=== PATIENT | male | born 1955 | race African-American/Black ===

== ENCOUNTER 2021-10-30 16:03 | Outpatient (CLI) | payer OTHER | END 2021-10-30 16:04 | disposition home or self-care (01) | LOC: CSHCT 16:03 | PROVIDERS: ATTEND Internal Medicine | DX: Z12.2 Encounter for screening for malignant neoplasm of respiratory organs (principal); F17.210 Nicotine dependence, cigarettes, uncomplicated | CPT/HCPCS: 71271 ==

== ENCOUNTER 2021-12-14 18:08 | Emergency (ER) | payer OTHER ==
[2021-12-14] MEDS ORDERED: Bacitracin 1 PK ONE (19:53)
[2021-12-14] MEDS ORDERED: Lidocaine 1% (PF) 30 ML VIAL ONE (19:53)
== END 2021-12-14 20:24 | disposition home or self-care (01) ==
LOC: CSHERS 18:08
DX: S61.012A Laceration without foreign body of left thumb without damage to nail, initial encounter (principal); I25.2 Old myocardial infarction; E11.9 Type 2 diabetes mellitus without complications; E78.5 Hyperlipidemia, unspecified; I10 Essential (primary) hypertension; F17.210 Nicotine dependence, cigarettes, uncomplicated; X58.XXXA Exposure to other specified factors, initial encounter
CPT/HCPCS: 12001; J2001

== ENCOUNTER 2021-12-21 09:44 | Emergency (ER) | payer OTHER | END 2021-12-21 10:06 | disposition home or self-care (01) | LOC: CSHERS 09:44 | DX: S61.011D Laceration without foreign body of right thumb without damage to nail, subsequent encounter (principal) | CPT/HCPCS: 99282 ==

== ENCOUNTER 2021-12-26 15:46 | Emergency (ER) | payer OTHER | END 2021-12-26 16:29 | disposition home or self-care (01) | LOC: CSHERS 15:46 | DX: S61.012D Laceration without foreign body of left thumb without damage to nail, subsequent encounter (principal); I25.10 Atherosclerotic heart disease of native coronary artery without angina pectoris; I25.2 Old myocardial infarction; E78.5 Hyperlipidemia, unspecified; E78.00 Pure hypercholesterolemia, unspecified; I10 Essential (primary) hypertension; E11.40 Type 2 diabetes mellitus with diabetic neuropathy, unspecified; F17.210 Nicotine dependence, cigarettes, uncomplicated ==

== ENCOUNTER 2022-01-07 08:21 | Emergency (ER) | payer OTHER ==
[2022-01-07 10:13] LABS: Hemoglobin 13.4 g/dL (13.5-17.5); Mean Corpuscular HGB CONC 35.4 g/dL (32.0-36.0); Mean Corpuscular Hemoglobin 26.9 pg (27.0-33.0); Mean Platelet Volume 11.6 fl (7.4-10.4); Platelet Count 221 10x3/uL (150-450); RBC Distribution Width 14.8 % (11.5-14.5); Red Blood Cell (RBC) Count 4.99 10x6/uL (4.32-5.72); White Blood Cell (WBC) Count 5.5 10x3/uL (3.5-10.5)
[2022-01-07 10:14] LABS: MDiff Complete? YES
[2022-01-07] MEDS ORDERED: Acetaminophen 500 MG TAB ONE (10:22)
[2022-01-07 10:40] LABS: Bilirubin Neg (Negative); Blood, Urine Negative (Negative); Clarity Clear (Clear); Glucose, Urine (Dipstick) 100 mg/dL (Negative); Ketone, Urine Negative (Negative); Leukocyte Negative (Negative); Nitrite Negative (Negative); Protein, Urine (Dipstick) 30 mg/dl (Neg-Trace); Specific Gravity, Urine 1.025 (1.002-1.036)
[2022-01-07 10:41] LABS: ALT (SGPT) 18 U/L (8-55); AST (SGOT) 17 U/L (5-34); Alkaline Phosphatase 60 U/L (40-110); Anion Gap 15 mmol/L (10-20); BUN (Urea Nitrogen) 15 mg/dL (8.4-25.7); Bilirubin, Total 0.7 mg/dL (0.2-1.2); Calc. Creatinine Clearance 0 mL/min (70-130); Calcium 9.1 mg/dL (7.8-10.44); Carbon Dioxide 23 mmol/L (23-31); Chloride 103 mmol/L (98-107); Estimated GFR 92; Globulin 2.7 g/dL (2.4-3.5); Glucose 212 mg/dL (80-115); Potassium 4.4 mmol/L (3.5-5.1); Protein, Total 6.7 g/dL (5.8-8.1); Sodium 137 mmol/L (136-145)
[2022-01-07 10:49] LABS: Band 2 % (5-11); Eosinophils 1 % (0-10); Lymphocytes 39 % (21-51); Monocytes 11 % (0-10); Neutrophil 44 % (42-75); Reactive Lymphocytes 2 % (0-10)
[2022-01-07 10:50] LABS: Platelet Morphology Comment Appears Adequate
[2022-01-07 10:53] LABS: Target Cells SLIGHT = 2-5 cells (100X) (0-1/hpf)
[2022-01-07 10:59] LABS: Bacteria/HPF 1+ HPF (None Seen); RBC/HPF 0-3 HPF (0-3); Squamous Epithelial 0-3 HPF (0-3); WBC/HPF 0-3 HPF (0-3)
[2022-01-07 11:00] LABS: Mucous/LPF 1+ LPF (<2+)
== END 2022-01-07 12:47 | disposition home or self-care (01) ==
LOC: CSHERS 08:21
DX: R10.9 Unspecified abdominal pain (principal); R21 Rash and other nonspecific skin eruption; I10 Essential (primary) hypertension; E11.40 Type 2 diabetes mellitus with diabetic neuropathy, unspecified; I25.10 Atherosclerotic heart disease of native coronary artery without angina pectoris; I25.2 Old myocardial infarction; E78.5 Hyperlipidemia, unspecified; E78.00 Pure hypercholesterolemia, unspecified; M19.90 Unspecified osteoarthritis, unspecified site; F17.210 Nicotine dependence, cigarettes, uncomplicated; Z95.5 Presence of coronary angioplasty implant and graft; Z79.4 Long term (current) use of insulin; Z79.82 Long term (current) use of aspirin; Z79.899 Other long term (current) drug therapy
CPT/HCPCS: 74176; 80053; 81003; 81015; 85025

== ENCOUNTER 2022-02-21 13:22 | Emergency (ER) | payer OTHER ==
[2022-02-21] MEDS ORDERED: Acetaminophen 325 MG TAB ONE (15:10)
[2022-02-21] MEDS ORDERED: Lidocaine 1% (PF) 30 ML VIAL ONE (15:10)
[2022-02-21 15:48] LABS: #Eosinphils 0.1 10x3/uL (0.0-0.5); #Monocytes 0.6 10x3/uL (0.0-1.1); #Neutrophils 3.4 10x3/uL (1.5-8.4); %Basophils 0.7 % (0.0-2.0); %Eosinophils 2.3 % (0.0-6.0); %Lymphocytes 30.4 % (18.0-47.0); %Neutrophils 56.3 % (40.0-75.0); Hemoglobin 12.2 g/dL (13.5-17.5); Mean Corpuscular HGB CONC 34.7 g/dL (32.0-36.0); Mean Corpuscular Hemoglobin 26.8 pg (27.0-33.0); Mean Corpuscular Volume 77.2 fl (81.2-95.1); Mean Platelet Volume 10.8 fl (7.4-10.4); Platelet Count 228 10x3/uL (150-450); RBC Distribution Width 14.6 % (11.5-14.5); Red Blood Cell (RBC) Count 4.56 10x6/uL (4.32-5.72); White Blood Cell (WBC) Count 6.1 10x3/uL (3.5-10.5)
[2022-02-21 16:02] LABS: ALT (SGPT) 16 U/L (8-55); AST (SGOT) 12 U/L (5-34); Alkaline Phosphatase 51 U/L (40-110); Anion Gap 13 mmol/L (10-20); BUN (Urea Nitrogen) 17 mg/dL (8.4-25.7); Bilirubin, Total 0.6 mg/dL (0.2-1.2); CK (CPK) 290 U/L (30-200); Calc. Creatinine Clearance 0 mL/min (70-130); Calcium 9.1 mg/dL (7.8-10.44); Carbon Dioxide 23 mmol/L (23-31); Chloride 106 mmol/L (98-107); Estimated GFR 80; Globulin 2.7 g/dL (2.4-3.5); Glucose 155 mg/dL (80-115); Lipase 11 U/L (8-78); Magnesium 1.7 mg/dL (1.6-2.6); Potassium 4.4 mmol/L (3.5-5.1); Protein, Total 6.7 g/dL (5.8-8.1); Sodium 138 mmol/L (136-145)
== END 2022-02-21 20:20 | disposition home or self-care (01) ==
LOC: CSHERS 13:22
DX: L02.214 Cutaneous abscess of groin (principal); R07.89 Other chest pain; E11.40 Type 2 diabetes mellitus with diabetic neuropathy, unspecified; I10 Essential (primary) hypertension; E78.00 Pure hypercholesterolemia, unspecified; F17.210 Nicotine dependence, cigarettes, uncomplicated
CPT/HCPCS: 10060; 36415; 71045; 80053; 82550; 83690; 83735; 83880; 84484; 85025; 93005; J2001

== ENCOUNTER 2022-05-12 11:09 | Outpatient (CLI) | payer OTHER | END 2022-05-12 11:10 | disposition home or self-care (01) | LOC: CSHRAD 11:09 | PROVIDERS: ATTEND Specialist | DX: M54.16 Radiculopathy, lumbar region (principal); Z98.890 Other specified postprocedural states; M47.816 Spondylosis without myelopathy or radiculopathy, lumbar region | CPT/HCPCS: 72120 ==

== ENCOUNTER 2022-05-25 14:45 | Outpatient (CLI) | payer OTHER | END 2022-05-25 14:46 | disposition home or self-care (01) | LOC: CSHCT 14:45 | PROVIDERS: ATTEND Specialist | DX: M54.16 Radiculopathy, lumbar region (principal); Z98.890 Other specified postprocedural states; M47.816 Spondylosis without myelopathy or radiculopathy, lumbar region | CPT/HCPCS: 72131 ==

== ENCOUNTER 2022-08-16 09:17 | Outpatient (CLI) | payer OTHER | END 2022-08-16 09:18 | disposition home or self-care (01) | LOC: CSHULT 09:17 | PROVIDERS: ATTEND Internal Medicine | DX: S80.10XA Contusion of unspecified lower leg, initial encounter (principal) | CPT/HCPCS: 93970 ==

== ENCOUNTER 2022-08-17 08:23 | Day surgery (SDC) | payer OTHER ==
[2022-08-17] MEDS ORDERED: Lidocaine 1% PF 5 ML VIAL ONE ×2 (09:02→09:03)
[2022-08-17] MEDS ORDERED: Sodium Bicarbonate 2.5 MEQ/5 ML VIAL ONE (09:03)
[2022-08-17] MEDS ORDERED: Iopamidol-M 200 41% 10 ML VIAL FS ONE (09:07)
[2022-08-17 12:49] VITALS: BP 154/88; TEMP 98.5
== END 2022-08-17 11:55 | disposition home or self-care (01) ==
LOC: CSHRAD 08:23
PROVIDERS: ATTEND Neurological Surgery
PROC: B02BYZZ Computerized Tomography (CT Scan) of Spinal Cord using Other Contrast (ICD-10-PCS; principal; 2022-08-17)
DX: M48.061 Spinal stenosis, lumbar region without neurogenic claudication (principal); M54.16 Radiculopathy, lumbar region; E11.42 Type 2 diabetes mellitus with diabetic polyneuropathy; I12.9 Hypertensive chronic kidney disease with stage 1 through stage 4 chronic kidney disease, or unspecified chronic kidney disease; E11.22 Type 2 diabetes mellitus with diabetic chronic kidney disease; N18.9 Chronic kidney disease, unspecified; I25.2 Old myocardial infarction; Z98.1 Arthrodesis status; Z88.5 Allergy status to narcotic agent; Z88.2 Allergy status to sulfonamides; Z88.6 Allergy status to analgesic agent; Z88.8 Allergy status to other drugs, medicaments and biological substances; Z79.84 Long term (current) use of oral hypoglycemic drugs
CPT/HCPCS: 62304; 72132; Q9966

== ENCOUNTER 2023-05-02 11:02 | Outpatient (CLI) | payer OTHER | END 2023-05-02 11:03 | disposition home or self-care (01) | LOC: CSHRAD 11:02 | PROVIDERS: ATTEND Neurological Surgery | DX: M47.26 Other spondylosis with radiculopathy, lumbar region (principal); M43.17 Spondylolisthesis, lumbosacral region; Z98.890 Other specified postprocedural states | CPT/HCPCS: 72100 ==

== ENCOUNTER 2023-08-01 12:07 | Outpatient (CLI) | payer MEDICARE, OTHER | END 2023-08-01 12:08 | disposition home or self-care (01) | LOC: CSHRAD 12:07 | PROVIDERS: ATTEND Neurological Surgery | DX: M43.16 Spondylolisthesis, lumbar region (principal); M47.816 Spondylosis without myelopathy or radiculopathy, lumbar region; Z98.890 Other specified postprocedural states | CPT/HCPCS: 72110 ==

== ENCOUNTER 2024-05-17 12:29 | Emergency (ER) | payer MEDICARE, MEDICAID | END 2024-05-17 15:31 | disposition home or self-care (01) | LOC: CSHERS 12:29 | DX: M67.432 Ganglion, left wrist (principal); E11.9 Type 2 diabetes mellitus without complications; I10 Essential (primary) hypertension; F17.210 Nicotine dependence, cigarettes, uncomplicated ==

== ENCOUNTER 2024-06-09 15:33 | Emergency (ER) | payer MEDICARE, MEDICAID ==
[2024-06-09 16:46] LABS: #Basophils 0.03 10x3/uL (0.0-0.2); #Eosinophils 0.19 10x3/uL (0.0-0.5); #Monocytes 0.69 10x3/uL (0.0-1.1); #Neutrophils 2.78 10x3/uL (1.5-8.4); %Basophils 0.5 % (0.0-2.0); %Eosinophils 3.4 % (0.0-6.0); %Lymphocytes 33.7 % (18.0-47.0); %Monocytes 12.3 % (0.0-10.0); %Neutrophils 49.6 % (40.0-75.0); Hematocrit 34.3 % (38.8-50.0); Hemoglobin 12.2 g/dL (13.5-17.5); Mean Corpuscular HGB CONC 35.6 g/dL (32.0-36.0); Mean Corpuscular Hemoglobin 27.1 pg (27.0-33.0); Mean Corpuscular Volume 76.2 fL (81.2-95.1); Mean Platelet Volume 10.2 fL (7.4-10.4); Platelet Count 266 10x3/uL (150-450); RBC Distribution Width 14.4 % (11.5-14.5); White Blood Cell (WBC) Count 5.6 10x3/uL (3.5-10.5)
[2024-06-09 17:04] LABS: ALT (SGPT) 23 U/L (8-55); AST (SGOT) 23 U/L (5-34); Albumin 3.7 g/dL (3.4-4.8); Alkaline Phosphatase 74 U/L (40-110); Anion Gap 15 mmol/L (10-20); BUN (Urea Nitrogen) 12 mg/dL (8.4-25.7); Bilirubin, Total 0.6 mg/dL (0.2-1.2); Calc. Creatinine Clearance 0 mL/min (70-130); Calcium 9.2 mg/dL (7.8-10.44); Carbon Dioxide 23 mmol/L (23-31); Chloride 108 mmol/L (98-107); Estimated GFR 81; Globulin 2.8 g/dL (2.4-3.5); Glucose 67 mg/dL (80-115); Potassium 4.7 mmol/L (3.5-5.1); Protein, Total 6.5 g/dL (5.8-8.1); Sodium 141 mmol/L (136-145)
== END 2024-06-09 17:57 | disposition home or self-care (01) ==
LOC: CSHERS 15:33
DX: E11.65 Type 2 diabetes mellitus with hyperglycemia (principal); I10 Essential (primary) hypertension; E11.40 Type 2 diabetes mellitus with diabetic neuropathy, unspecified; F17.210 Nicotine dependence, cigarettes, uncomplicated; Z79.4 Long term (current) use of insulin
CPT/HCPCS: 36415; 36416; 80053; 84484; 85025; 99283

== ENCOUNTER 2024-06-11 08:45 | Outpatient (CLI) | payer MEDICARE, MEDICAID | END 2024-06-11 08:46 | disposition home or self-care (01) | LOC: CSHMRI 08:45 | PROVIDERS: ATTEND Orthopaedic Surgery Hand Surgery | DX: M48.02 Spinal stenosis, cervical region (principal); M47.22 Other spondylosis with radiculopathy, cervical region; R93.7 Abnormal findings on diagnostic imaging of other parts of musculoskeletal system | CPT/HCPCS: 72141 ==

== ENCOUNTER 2025-06-07 12:00 | Outpatient (CLI) | payer MEDICARE, MEDICAID | END 2025-06-07 12:01 | disposition home or self-care (01) | LOC: CSHULT 12:00 | PROVIDERS: ATTEND Urology | DX: N28.1 Cyst of kidney, acquired (principal) | CPT/HCPCS: 76770 ==

== ENCOUNTER 2025-06-30 11:50 | Emergency (ER) | payer MEDICARE, MEDICAID | END 2025-06-30 14:45 | disposition home or self-care (01) | LOC: CSHERS 11:50 | DX: J06.9 Acute upper respiratory infection, unspecified (principal); I25.10 Atherosclerotic heart disease of native coronary artery without angina pectoris; I10 Essential (primary) hypertension; I25.2 Old myocardial infarction; E11.40 Type 2 diabetes mellitus with diabetic neuropathy, unspecified; F17.210 Nicotine dependence, cigarettes, uncomplicated; Z95.5 Presence of coronary angioplasty implant and graft | CPT/HCPCS: 36416; 71045; 87428 ==